=== PATIENT | female | born 1970 | race Two or more races ===

== ENCOUNTER 2016-12-05 14:33 | Emergency (ER) | payer OTHER ==
[~2016-12-05] VITALS: Ht 165.1 cm; Wt 122.5 kg
[~2016-12-05 14:33] MED LIST: HYDR-2762; LORA1TAB PO; OMEP20TA8 PO; PROPANOLOL PO; SERT100T PO; TRAM-48 PO; VIBRYD PO
[2016-12-05] MEDS ORDERED: NAPROXEN 500 MG TABLET PO STA (15:05)
[2016-12-05 15:14] VITALS: BP 160/83
[2016-12-05] MEDS ORDERED: HYDROcodone/APAP 5/325MG 1 TAB TABLET PO ONE (15:15)
--- NOTE | 2016-12-05 15:46 | RAD ---
Examination: 3 views of the left ankle History: History of status post fall, pain. Comparison: None available Findings: The ankle mortise appears intact. There is no acute fracture identified. Mild soft tissue swelling identified lateral to lateral malleolus. Impression: 1. No acute osseous findings. 2. Mild soft tissue swelling lateral to lateral malleolus.
--- NOTE | 2016-12-05 15:48 | RAD ---
Examination: 3 views of the left wrist. History history of fall, pain. Comparison: None available Findings: The alignment of the carpal bones grossly appears unremarkable. There is no acute obvious fracture identified. Mild soft tissue swelling identified around the wrist joint. Impression: No acute osseous findings
[2016-12-05] MEDS ORDERED: TRAM-48 PO (16:01)
--- NOTE | 2016-12-05 16:01 | PHYS DOC ---
Past Medical History Past Medical History: Depression, Schizophrenia, Other Additional Past Medical Histor: CHRONIC BACK PAIN Past Surgical History: Cholecystectomy, , Hysterectomy Alcohol Use: None Drug Use: None Adult General Chief Complaint Chief Complaint: MECHANICAL FALL HPI HPI Patient is a 46 year old female with history of schizophrenia and depression who presents with mild to moderate left lateral ankle pain and left lateral wrist pain that began a couple minutes prior to coming to the ED after falling down. Patient denies any loss of consciousness. Patient states her pain is worse on range of motion as well as ambulation. Review of Systems Review of Systems Constitutional: Denies fever or chills [] Musculoskeletal: Left lateral wrist pain and left lateral ankle pain Integument: Denies rash or skin lesions [] Neurologic: Denies headache, focal weakness or sensory changes [] Current Medications Current Medications Current Medications Medications (Trade) Dose Ordered Sig/Mariluz Start Time Stop Time Status Last Admin Dose Admin Acetaminophen/ Hydrocodone Bitart (Lortab 5/325) 1 tab 1X ONCE 12/05/16 15:15 12/05/16 15:16 DC 12/05/16 15:41 1 TAB Naproxen (Naprosyn) 500 mg 1X STAT 12/05/16 15:05 12/05/16 15:06 DC 12/05/16 15:40 500 MG Allergies Allergies Allergies Coded Allergies Type Severity Reaction Last Updated Verified Penicillins Allergy Intermediate 12/16/15 Yes Physical Exam Physical Exam Constitutional: Well developed, well nourished, no acute distress, non-toxic appearance. [] Skin: Warm, dry, no erythema, no rash. [] Back: No tenderness, no CVA tenderness. [] Extremities: Left lateral wrist with small amount of soft tissue swelling, no scaphoid tenderness to the left wrist. Tenderness on palpation of the ulnar styloid of the left wrist, full range of motion to the left wrist, adequate radial medial and ulnar sensation to the left hand. +2 left radial pulse. Cap refill less than 2 seconds the left fingers. Left ankle with no obvious deformity, moderate soft tissue swelling noted on the left lateral ankle. Full passive range of motion to the left foot and ankle. +2 left pedal pulse. Cap refill less than 2 seconds left toes. Neurologic: Alert and oriented X 3, normal motor function, normal sensory function, no focal deficits noted. [] Psychologic: Affect normal, judgement normal, mood normal. [] Current Patient Data Vital Signs Vital Signs Date Time Temp Pulse Resp B/P (MAP) Pulse Ox O2 Delivery O2 Flow Rate FiO2 12/05/16 15:41 17 97 Room Air 12/05/16 15:14 98.6 100 98.6 EKG EKG [] Radiology/Procedures Radiology/Procedures [] Course & Med Decision Making Course & Med Decision Making Pertinent Labs and Imaging studies reviewed. (See chart for details) Patient is in the ED with left ankle and left wrist pain after falling. Left wrist x-rays as well as left ankle x-rays interpreted by radiologist were negative for any acute findings. Patient has left ankle and left wrist sprain. Aircast applied to the left ankle, and Velcro wrist splint to the left wrist neurovascular exam is intact. Discharged with Ultram for pain. Ice elevation encouraged. Follow-up with open one week if pain continues. Dragon Disclaimer Dragon Disclaimer This electronic medical record was generated, in whole or in part, using a voice recognition dictation system. Departure Departure Impression: Primary Impression: Fall from standing Additional Impressions: Ankle sprain Left wrist sprain Disposition: HOME, SELF-CARE Condition: STABLE Referrals: YOAN THACKER PA-C (PCP) PHILLY SIMMS MD Follow-up in one week Patient Instructions: Ankle Sprain, Fall Prevention and Home Safety, Wrist Sprain with [facility] Additional Instructions: You were seen for left ankle and left wrist sprain after falling. Ice and elevate the affected extremities. Follow-up with the provided orthopedic doctor in one week if pain continues. Take the prescribed medicine as needed for pain. Do not drive or operate machinery on the Ultram. Scripts Tramadol Hcl (ULTRAM) 50 Mg Tablet 1 TAB PO Q6HRS, #30 TAB Prov: HECTOR MESA LARD REFINER 12/05/16 Problem Qualifiers Primary Impression: Fall from standing Encounter type: initial encounter Qualified Codes: W19.XXXA - Unspecified fall, initial encounter Additional Impressions: Ankle sprain Encounter type: initial encounter Involved ligament of ankle: unspecified ligament Laterality: left Qualified Codes: S93.402A - Sprain of unspecified ligament of left ankle, initial encounter Left wrist sprain Encounter type: initial encounter Qualified Codes: S63.502A - Unspecified sprain of left wrist, initial encounter HECTOR MESA APRN Dec 05, 2016 16:01
== END 2016-12-05 16:18 | disposition home or self-care (01) ==
LOC: ER 14:33
DX: S93.402A Sprain of unspecified ligament of left ankle, initial encounter (principal); S63.502A Unspecified sprain of left wrist, initial encounter; G89.29 Other chronic pain; F20.9 Schizophrenia, unspecified; Z90.49 Acquired absence of other specified parts of digestive tract; Z90.710 Acquired absence of both cervix and uterus; Z88.0 Allergy status to penicillin; W18.39XA Other fall on same level, initial encounter; Y93.89 Activity, other specified; Y99.8 Other external cause status; Y92.89 Other specified places as the place of occurrence of the external cause
CPT/HCPCS: 29125; 73110; 73610; 99284; L4350

== ENCOUNTER → 2016-12-14 | Outpatient (CLI) | payer OTHER ==
[2016-12-05 15:14] VITALS: BP 160/83
--- NOTE | 2016-12-14 16:02 | RAD ---
INDICATION: Left leg numbness and left leg giving out. Low back pain for 2 months. TECHNIQUE: Sagittal T1, sagittal T2, sagittal STIR, axial T1, and axial T2 sequences are provided. Comparison is a CT from July 12, 2013. FINDINGS: There is retrolisthesis at L5-S1 measuring 6 mm. There is otherwise no malalignment. There is fatty replacement of the endplates at L5-S1. There is disc desiccation at L4-L5 and L5-S1. There is prominent epidural fat beginning at the level of L4 and extending along the S1 segment of the sacrum. The conus medullaris is normal in signal intensity and in position. Subcutaneous edema is noted. There is a retroaortic left renal vein which is a normal vascular variant. The numbering system assumes 5 lumbar type vertebral bodies. Findings by individual level are as follows: L1-L2, L2-L3, L3-L4: There is no canal or foraminal compromise. L4-L5: Minimal disc bulge and shallow central protrusion with annular fissure is noted. There is facet hypertrophy. There is no canal stenosis. There is no foraminal narrowing. L5-S1: At the level of L5 the thecal sac is severely compressed secondary to epidural lipomatosis, midline AP diameter of the sac is 6 mm. At the level of the interspace the thecal sac is normal caliber. There is a disc osteophyte complex at L5-S1 in addition to the retrolisthesis. There is no high-grade canal or foraminal compromise. IMPRESSION: 1. Epidural lipomatosis at the level of L5 compressing the thecal sac. 2. Mild degenerative disc disease at L5-S1 and L4-L5 without any associated canal stenosis. Electronically signed by: Arnold Flores MD (12/14/2016 3:58 PM) [id number]
== END | disposition home or self-care (01) ==
LOC: MRI 14:18
PROVIDERS: ATTEND Physician Assistant
DX: M54.42 Lumbago with sciatica, left side (principal); M51.36 Other intervertebral disc degeneration, lumbar region; M51.37 Other intervertebral disc degeneration, lumbosacral region; E88.2 Lipomatosis, not elsewhere classified; R20.0 Anesthesia of skin
CPT/HCPCS: 72148

== ENCOUNTER 2017-03-20 21:44 | Emergency (ER) | payer OTHER ==
[~2017-03-20] VITALS: Ht 167.6 cm; Wt 117.0 kg
[2017-03-20 21:56] VITALS: BP 167/91
[2017-03-20] MEDS ORDERED: AZIT250T6 PO (22:05)
[2017-03-20] MEDS ORDERED: BENZ100C PO (22:05)
--- NOTE | 2017-03-20 22:06 | PHYS DOC ---
Past Medical History Past Medical History: Depression, Schizophrenia, Other Additional Past Medical Histor: CHRONIC BACK PAIN; "pre-diabetic" Past Surgical History: Cholecystectomy, , Hysterectomy Additional Past Surgical Histo: Colonoscopy Additional Information: Non smoker Alcohol Use: None Drug Use: None Adult General Chief Complaint Chief Complaint: COUGH HPI HPI Patient is a 46 year old female who presents with cough and cold symptoms for four days. She is here with a daughter who can interpret. She's been coughing for 4 days it has been productive. No fever that she is aware of. She didn't get a flu vaccine. No vomiting or diarrhea. She does not smoke tobacco. No recent travel. Review of Systems Review of Systems Constitutional: Denies fever or chills Eyes: Denies change in visual acuity, redness, or eye pain HENT: POS nasal congestion & sore throat Respiratory: POS cough but no shortness of breath Cardiovascular: No chest pain GI: Denies abdominal pain, nausea, vomiting, bloody stools or diarrhea : Denies dysuria or hematuria Musculoskeletal: Denies back pain or joint pain Integument: Denies rash or skin lesions Neurologic: Denies headache, focal weakness or sensory changes All other systems were reviewed and found to be within normal limits, except as documented in this note. Allergies Allergies Allergies Coded Allergies Type Severity Reaction Last Updated Verified Penicillins Allergy Intermediate 12/16/15 Yes Physical Exam Physical Exam Constitutional: Well developed, well nourished, no acute distress, non-toxic appearance. HENT: Normocephalic, atraumatic, tympanic members are clear bilaterally, bilateral external ears normal, oropharynx moist, no oral exudates, nose normal. Eyes: PERRLA, EOMI, conjunctiva normal, no discharge. Neck: Normal range of motion, no tenderness, supple, no stridor. Cardiovascular:Heart rate regular rhythm, no murmur Lungs & Thorax: Bilateral breath sounds without wheezing. Abdomen: Bowel sounds normal, soft, no tenderness, no masses, no pulsatile masses. Skin: Warm, dry, no erythema, no rash. Back: No tenderness, no CVA tenderness. Extremities: No tenderness, no cyanosis, no clubbing, ROM intact, no edema. Neurologic: Alert and oriented X 3, normal motor function, normal sensory function, no focal deficits noted. Psychologic: Affect normal, judgement normal, mood normal. Current Patient Data Vital Signs Vital Signs Date Time Temp Pulse Resp B/P (MAP) Pulse Ox O2 Delivery O2 Flow Rate FiO2 03/20/17 21:56 99.0 79 18 97 Room Air 99.0 Course & Med Decision Making Course & Med Decision Making Evaluated patient upon arrival. Patient is nontoxic. She does have a low-grade temperature here. Placed on Zithromax and Tessalon Perles. Did explain this most probably viral syndrome. Her blood pressure was noted to be elevated and did give her instructions to have that repeated in the office/clinic in a week. I have spoken with the patient and/or caregivers. I have explained the patient' s condition, diagnosis and treatment plan based on the information available to me at this time. I have answered the patient's and/or caregiver's questions and addressed any concerns. The patient and/or caregivers have as good an understanding of the patient's diagnosis, condition and treatment plan as can be expected at this point. The patient's condition is stable and appropriate for discharge from the emergency department. The patient will pursue further outpatient evaluation with the primary care physician or other designated or consulting physician as outlined in the discharge instructions. The patient and/or caregivers are agreeable to this plan of care and follow-up instructions have been explained in detail. The patient and/or caregivers have received these instructions in written format and have expressed an understanding of the discharge instructions. The patient and/or caregivers are aware that any significant change in condition or worsening of symptoms should prompt an immediate return to this or the closest emergency department or a call to 911. Dragon Disclaimer Dragon Disclaimer This electronic medical record was generated, in whole or in part, using a voice recognition dictation system. Departure Departure Impression: Primary Impression: Cough Additional Impressions: Viral syndrome Bronchitis Disposition: HOME, SELF-CARE Condition: STABLE Referrals: CLEMENTE ZAMUDIO PA-C (PCP) Patient Instructions: Acute Bronchitis, Cough, Adult Additional Instructions: YOUR BLOOD PRESSURE WAS ELEVATED HERE. YOU NEED TO HAVE YOUR BLOOD PRESSURE RECHECKED AT THE CLINIC IN FOLLOW UP IN ONE WEEK Scripts Benzonatate (TESSALON PERLE) 100 Mg Capsule 1 CAP PO TID, #21 CAP Prov: BOBBY WATKINS MD 03/20/17 Azithromycin (AZITHROMYCIN TABLET) 250 Mg Tablet 1 PKG PO UD, #6 TAB Prov: BOBBY WATKINS MD 03/20/17 Problem Qualifiers BOBBY WATKINS MD Mar 20, 2017 22:06
== END 2017-03-20 22:18 | disposition home or self-care (01) ==
LOC: ER 21:44
DX: J40 Bronchitis, not specified as acute or chronic (principal); B34.9 Viral infection, unspecified; F20.9 Schizophrenia, unspecified; G89.29 Other chronic pain; Z88.0 Allergy status to penicillin
CPT/HCPCS: 99283

== ENCOUNTER 2017-04-12 15:52 | Emergency (ER) | payer OTHER ==
[2017-04-12] MEDS: ACETAMINOPHEN 500 MG TABLET PO (16:30)
[2017-04-12 17:13] LABS: INFLUENZA B PATIENT NEGATIVE (NEGATIVE); OBC FLU VALID
[2017-04-12 17:15] LABS: INFLUENZA A PATIENT POSITIVE (NEGATIVE)
[2017-04-12] MEDS: IBUPROFEN 400 MG TABLET. PO (17:20)
== END 2017-04-12 18:29 | disposition home or self-care (01) ==
LOC: ER 15:52
DX: J09.X2 Influenza due to identified novel influenza A virus with other respiratory manifestations (principal); F20.9 Schizophrenia, unspecified; F32.9 Major depressive disorder, single episode, unspecified; Z88.0 Allergy status to penicillin
CPT/HCPCS: 71046; 87804; 87804-59; 99285-25

== ENCOUNTER 2017-05-21 19:34 | Emergency (ER) | payer OTHER | END 2017-05-21 22:33 | disposition home or self-care (01) | LOC: ER 22:33 | DX: S40.012A Contusion of left shoulder, initial encounter (principal); S00.83XA Contusion of other part of head, initial encounter; S50.01XA Contusion of right elbow, initial encounter; F20.9 Schizophrenia, unspecified; G89.29 Other chronic pain; Z88.0 Allergy status to penicillin; X58.XXXA Exposure to other specified factors, initial encounter; Y93.89 Activity, other specified; Y92.89 Other specified places as the place of occurrence of the external cause; Y99.8 Other external cause status | CPT/HCPCS: 73110; 73130; 99284 ==

== ENCOUNTER 2017-07-07 17:57 | Emergency (ER) | payer OTHER ==
[2017-07-07] MEDS: ALPRAZolam 0.5 MG TABLET PO (19:24)
== END 2017-07-07 19:28 | disposition home or self-care (01) ==
LOC: ER 19:28
DX: S63.502A Unspecified sprain of left wrist, initial encounter (principal); S60.032A Contusion of left middle finger without damage to nail, initial encounter; F20.9 Schizophrenia, unspecified; G89.29 Other chronic pain; Z90.710 Acquired absence of both cervix and uterus; Z98.890 Other specified postprocedural states; Z88.0 Allergy status to penicillin; Y08.89XA Assault by other specified means, initial encounter; Y93.89 Activity, other specified; Y99.8 Other external cause status; Y92.89 Other specified places as the place of occurrence of the external cause
CPT/HCPCS: 29125; 99283-25

== ENCOUNTER 2017-07-30 19:27 | Emergency (ER) | payer OTHER | END 2017-07-30 20:28 | disposition home or self-care (01) | LOC: ER 19:27 | DX: F41.9 Anxiety disorder, unspecified (principal); F20.9 Schizophrenia, unspecified; G89.29 Other chronic pain; Z88.0 Allergy status to penicillin | CPT/HCPCS: 96372; 99284-25; J2060 ==

== ENCOUNTER 2018-03-29 18:44 | Emergency (ER) | payer OTHER ==
[~2018-03-29] VITALS: Ht 165.1 cm; Wt 117.9 kg
[~2018-03-29 18:44] MED LIST changes: +AZIT250T6 PO; +BENZ100C PO; +DICL50TA4 PO; -HYDR-2762; +HYDR-2765; +HYDR5SUS PO; +OSEL75CA PO
[2018-03-29] MEDS ORDERED: ONDANSETRON PF 4 MG/2 ML VIAL. IV ONE (19:30)
[2018-03-29] MEDS ORDERED: IV NORMAL SALINE 1000ML BAG 1,000 ML IV ONE (19:30)
[2018-03-29] MEDS ORDERED: DICYCLOMINE HCL 10 MG CAPSULE PO ONE (19:30)
[2018-03-29] MEDS ORDERED: KETOROLAC 15 MG/ML VIAL. IV ONE (19:30)
[2018-03-29] MEDS ORDERED: ONDA4TAB7 PO (19:44)
[2018-03-29 19:45] VITALS: BP 131/83
[2018-03-29 19:48] LABS: BASO % 0 % (0-3); EOS # 0.1 x10^3/uL (0.0-0.7); EOS % 1 % (0-3); HEMATOCRIT 41.8 % (36.0-47.0); HEMOGLOBIN 14.3 g/dL (12.0-15.5); LYMPH # 1.5 x10^3/uL (1.0-4.8); LYMPH % 18 % (24-48); MEAN CORPUSCULAR HEMOGLOBIN 28 pg (25-35); MEAN CORPUSCULAR HGB CONC 34 g/dL (31-37); MEAN CORPUSCULAR VOLUME 83 fL (79-100); MONO # 0.5 x10^3/uL (0.0-1.1); MONO % 6 % (0-9); NEUT # 6.2 x10^3uL (1.8-7.7); NEUT % 75 % (31-73); PLATELET COUNT 240 x10^3/uL (140-400); RED BLOOD COUNT 5.06 x10^6/uL (3.50-5.40); RED CELL DISTRIBUTION WIDTH 16.2 % (11.5-14.5); WHITE BLOOD COUNT 8.3 x10^3/uL (4.0-11.0)
[2018-03-29 19:56] LABS: CALCIUM 9.6 mg/dL (8.5-10.1); CREATININE 0.8 mg/dL (0.6-1.0); GFR 76.9; POTASSIUM 3.6 mmol/L (3.5-5.1)
[2018-03-29 20:02] LABS: ALBUMIN 3.9 g/dL (3.4-5.0); ALBUMIN/GLOBULIN RATIO 0.8 (1.0-1.7); TOTAL BILIRUBIN 0.5 mg/dL (0.2-1.0); TOTAL PROTEIN 8.6 g/dL (6.4-8.2)
--- NOTE | 2018-03-29 20:49 | PHYS DOC ---
Past Medical History Past Medical History: Anxiety, Depression, Schizophrenia, Other Additional Past Medical Histor: CHRONIC BACK PAIN; "pre-diabetic" Past Surgical History: Cholecystectomy, , Hysterectomy Additional Past Surgical Histo: Colonoscopy Alcohol Use: None Drug Use: None Adult General Chief Complaint Chief Complaint: NAUSEA/VOMITING/DIARRHA HPI HPI Patient is a 47 year old female who presents with chief complaint of nausea vomiting and diarrhea greater than 10 episodes of each ate some pork son also ate the same food and he is also in the emergency room with the same symptoms abdominal cramping intermittently relieved after vomiting symptoms are moderate feels like she is dehydrated can't keep anything down Review of Systems Review of Systems Constitutional: Denies fever or chills [] Eyes: Denies change in visual acuity, redness, or eye pain [] HENT: Denies nasal congestion or sore throat [] Respiratory: Denies cough or shortness of breath [] Musculoskeletal: Denies back pain or joint pain [] Integument: Denies rash or skin lesions [] Neurologic: Denies headache, focal weakness or sensory changes [] All other systems were reviewed and found to be within normal limits, except as documented in this note. Current Medications Current Medications Current Medications Medications (Trade) Dose Ordered Sig/Mariluz Start Time Stop Time Status Last Admin Dose Admin Dicyclomine HCl (Bentyl) 10 mg 1X ONCE 03/29/18 19:30 03/29/18 19:31 DC 03/29/18 19:39 10 MG Ketorolac Tromethamine (Toradol 15mg Vial) 15 mg 1X ONCE 03/29/18 19:30 03/29/18 19:31 DC 03/29/18 19:39 15 MG Ondansetron HCl (Zofran) 4 mg 1X ONCE 03/29/18 19:30 03/29/18 19:31 DC 03/29/18 19:39 4 MG Sodium Chloride 1,000 ml @ 1,000 mls/hr 1X ONCE 03/29/18 19:30 03/29/18 20:29 DC 03/29/18 19:38 1,000 MLS/HR Allergies Allergies Allergies Coded Allergies Type Severity Reaction Last Updated Verified Penicillins Allergy Intermediate 12/16/15 Yes Physical Exam Physical Exam Constitutional: Well developed, well nourished, no acute distress, non-toxic appearance. [] HENT: Normocephalic, atraumatic, bilateral external ears normal, oropharynx moist, no oral exudates, nose normal. [] Eyes: PERRLA, EOMI, conjunctiva normal, no discharge. [] Neck: Normal range of motion, no tenderness, supple, no stridor. [] Pulmonary: Normal respiratory effort no increased work of breathing no obvious chest wall trauma Abdomen: Bowel sounds normal, soft, no tenderness, no masses, no pulsatile masses. [] Skin: Warm, dry, no erythema, no rash. [] Back: No tenderness, no CVA tenderness. [] Extremities: No tenderness, no cyanosis, no clubbing, ROM intact, no edema. [] Neurologic: Alert and oriented X 3, normal motor function, normal sensory function, no focal deficits noted. [] Psychologic: Affect normal, judgement normal, mood normal. [] Current Patient Data Vital Signs Vital Signs Date Time Temp Pulse Resp B/P (MAP) Pulse Ox O2 Delivery O2 Flow Rate FiO2 03/29/18 19:45 82 16 131/83 (99) 95 Room Air 03/29/18 19:05 98.3 98.3 Lab Values Laboratory Tests Test 03/29/18 19:38 White Blood Count 8.3 x10^3/uL (4.0-11.0) Red Blood Count 5.06 x10^6/uL (3.50-5.40) Hemoglobin 14.3 g/dL (12.0-15.5) Hematocrit 41.8 % (36.0-47.0) Mean Corpuscular Volume 83 fL (79-100) Mean Corpuscular Hemoglobin 28 pg (25-35) Mean Corpuscular Hemoglobin Concent 34 g/dL (31-37) Red Cell Distribution Width 16.2 % (11.5-14.5) H Platelet Count 240 x10^3/uL (140-400) Neutrophils (%) (Auto) 75 % (31-73) H Lymphocytes (%) (Auto) 18 % (24-48) L Monocytes (%) (Auto) 6 % (0-9) Eosinophils (%) (Auto) 1 % (0-3) Basophils (%) (Auto) 0 % (0-3) Neutrophils # (Auto) 6.2 x10^3uL (1.8-7.7) Lymphocytes # (Auto) 1.5 x10^3/uL (1.0-4.8) Monocytes # (Auto) 0.5 x10^3/uL (0.0-1.1) Eosinophils # (Auto) 0.1 x10^3/uL (0.0-0.7) Basophils # (Auto) 0.0 x10^3/uL (0.0-0.2) Sodium Level 137 mmol/L (136-145) Potassium Level 3.6 mmol/L (3.5-5.1) Chloride Level 101 mmol/L (98-107) Carbon Dioxide Level 24 mmol/L (21-32) Anion Gap 12 (6-14) Blood Urea Nitrogen 13 mg/dL (7-20) Creatinine 0.8 mg/dL (0.6-1.0) Estimated GFR (Cockcroft-Gault) 76.9 BUN/Creatinine Ratio 16 (6-20) Glucose Level 114 mg/dL (70-99) H Calcium Level 9.6 mg/dL (8.5-10.1) Total Bilirubin 0.5 mg/dL (0.2-1.0) Aspartate Amino Transferase (AST) 27 U/L (15-37) Alanine Aminotransferase (ALT) 49 U/L (14-59) Alkaline Phosphatase 105 U/L (46-116) Total Protein 8.6 g/dL (6.4-8.2) H Albumin 3.9 g/dL (3.4-5.0) Albumin/Globulin Ratio 0.8 (1.0-1.7) L Laboratory Tests 03/29/18 19:38 Laboratory Tests 03/29/18 19:38 EKG EKG [] Radiology/Procedures Radiology/Procedures [] Course & Med Decision Making Course & Med Decision Making Pertinent Labs and Imaging studies reviewed. (See chart for details) []Nausea vomiting and diarrhea very well-appearing female son checked into the ER with the identical symptoms and she is feeling better after IV fluids labs are unremarkable suspect food borne versus viral return precautions discussed and she voiced understanding Adriana Disclaimer Adriana Disclaimer This electronic medical record was generated, in whole or in part, using a voice recognition dictation system. Departure Departure Impression: Primary Impression: Nausea and vomiting Disposition: 01 HOME, SELF-CARE Condition: STABLE Patient Instructions: Nausea and Vomiting, Kafl-kf-Gdin Scripts Ondansetron Hcl (ZOFRAN) 4 Mg Tablet 4 MG PO PRN TID PRN for NAUSEA/VOMITING, #15 nausea/vomiting Prov: JEANIE JUNG MD 03/29/18 JEANIE JUNG MD Mar 29, 2018 20:48
== END 2018-03-29 20:20 | disposition home or self-care (01) ==
LOC: ER 18:44
DX: R11.2 Nausea with vomiting, unspecified (principal); R19.7 Diarrhea, unspecified; Z90.49 Acquired absence of other specified parts of digestive tract
CPT/HCPCS: 36415; 80053; 85025; 96361; 96374; 96375; 99283; J1885; J2405; J7030

== ENCOUNTER → 2020-04-06 | Outpatient (CLI) | payer MEDICAID ==
[~2020-04-06] MED LIST changes: +ONDA4TAB7 PO
--- NOTE | 2020-04-06 12:29 | KCIC ---
EXAM: Left knee, 3 views. HISTORY: Acute pain. COMPARISON: None. FINDINGS: 3 views of the left knee are obtained. There is no fracture, dislocation or subluxation. Th ere is no joint effusion. IMPRESSION: No acute osseous finding. Electronically signed by: Regine Worley MD (04/06/2020 12:26 PM) [id number]
== END ==
LOC: KCIC 11:29
PROVIDERS: ATTEND Physician Assistant
DX: M25.562 Pain in left knee (principal)
CPT/HCPCS: 73562